=== PATIENT | female | born 1985 | race Caucasian/White ===

== ENCOUNTER 2017-10-18 05:30 | Inpatient (IN) | payer OTHER ==
--- NOTE | 2017-10-17 13:35 | PDOC.LDHP ---
Labor and Delivery H&P Chief complaint: scheduled induction HPI: 32 yo @ 39w2d by LMP c/w 9 week sono who presents for scheduled TOLAC/IOL. Pt has h/o LTCS x1 for breech presentation in 2011 and x 1 in 2013. Pt was exposed to [id number] trimester in , however, her serology studies have been negative and US of fetus are reassuring. Antepartum course benign. Current gestational age (weeks): 39 Due date: 10/23/17 Dating criteria: last menstrual period Grav: 3 Para: 2 OB History Details: 2012- PLTCS for breech presentation 2013- Both infants approx 6 lbs Current complications: none Abnormal US findings: No Past Medical History: Migraines Current medications: pre-vicente vitamins Previous surgical history: low tranverse CS Allergies/Adverse Reactions: Allergies Allergy/AdvReac Type Severity Reaction Status Date / Time No Known Allergies Allergy Unverified 10/18/17 10:04 Social history: none - Physical Exam Vital signs reviewed and normal: yes General: NAD Heart: RRR Lungs: nonlabored breathing Abdomen: gravid Extremeties: no edema FHT: category 1 (130s, mod steven, +accels, no decels) [place] contractions every: q2-4 min - Vaginal Exam cm dilated: 3 (cephalic) Effacement: 50% Station: -2 - OB Labs Blood type: A RH: positive Antibody Screen: negative HIV: negative RPR: negative HEPSAg: negative 1 hour GCT: negative GBS: negative Urine drug screen: not done Rubella: immune - Assessment 39w2d IUP H/O LTCS x1, H/O x1 TOLAC Elective IOL - Plan Plan: admit to L&D, informed consent obtained, anesthesia consult for pain management -: Start pitocin for IOL of TOLAC
[2017-10-18 10:06] VITALS: BMI 34.1
[2017-10-18] MEDS: Lactated Ringer's 1,000 ML IV SCH ×3 (10:30→16:55)
[2017-10-18] MEDS ORDERED: Butorphanol Tartrate 1 MG/ML VIAL SLOW IVP PRN (10:47)
[2017-10-18] MEDS ORDERED: Ibuprofen 800 MG TAB PO PRN (10:47)
[2017-10-18] MEDS ORDERED: Carboprost 250 MCG/ML AMP IM PRN (10:47)
[2017-10-18] MEDS ORDERED: Lidocaine 1% (PF) 30 ML VIAL SC PRN (10:47)
[2017-10-18] MEDS ORDERED: Promethazine HCl 25 MG/ML VIAL IM PRN (10:47)
[2017-10-18] MEDS ORDERED: Methylergonovine 0.2 MG/ML VIAL IM PRN (10:47)
[2017-10-18] MEDS ORDERED: Ondansetron HCl/PF 4 MG/2 ML Vial IVP PRN (10:47)
[2017-10-18] MEDS ORDERED: Acetaminophen 500 MG TAB PO PRN (10:47)
[2017-10-18] MEDS ORDERED: NS w/ Oxytocin 10 units 500 ML IV SCH (10:47)
[2017-10-18] MEDS ORDERED: Misoprostol 200 MCG TAB PR PRN (10:47)
[2017-10-18] MEDS ORDERED: Diphenoxylate HCl/Atropine Tablet PO PRN (10:47)
[2017-10-18] MEDS ORDERED: NS / Oxytocin 40 units/1000ml 1,000 ML IV PRN (10:47)
[2017-10-18] MEDS ORDERED: HYDROcodone/Acetaminophen 5/325 mg Tablet PO PRN (10:47)
[2017-10-18 10:56] LABS: Hemoglobin 11.1 g/dL (12.0-16.0); Mean Corpuscular HGB CONC 35.3 g/dL (32.0-36.0); Mean Corpuscular Hemoglobin 30.4 pg (27.0-31.0); Mean Corpuscular Volume 86.2 fL (78.0-98.0); Mean Platelet Volume 8.4 fL (7.4-10.4); Platelet Count 232 thou/uL (130-400); RBC Distribution Width 12.5 % (11.5-14.5); Red Blood Cell (RBC) Count 3.64 mill/uL (4.20-5.40); White Blood Cell (WBC) Count 8.7 thou/uL (4.8-10.8)
[2017-10-18 11:35] LABS: Syphilis Antibody Nonreactive (Nonreactive); Syphilis Antibody Index 0.04 S/CO (<1.00 Non-Reactive)
[2017-10-18 11:36] LABS: HBSAg Index 0.17 S/CO (0-0.99); HIV (1/2) Antibody/Antigen Non-Reactive (NonReactive); HIV 1/2 INDEX 0.07 S/CO (<1.00); Hep B Surf Ag Non-Reactive S/CO (NonReactive)
[2017-10-18] MEDS ORDERED: Lidocaine 2% MPF 10 ML AMP (For Epidural Use) ONE (13:32)
[2017-10-18] MEDS ORDERED: ePHEDrine/0.9% NaCl/PF SYRINGE 50 mg/10 ml ONE (13:32)
[2017-10-18] MEDS ORDERED: Bupivacaine 0.75% 13.4 ML, fentaNYL Citrate/PF 400 MCG in Sodium Chloride 0.9% 78.6 ML EPIDURAL SCH (15:15)
--- NOTE | 2017-10-18 17:56 | PDOC.LDPN ---
Labor & Delivery Progress Note - Subjective Subjective: comfortable - Objective Vital signs reviewed and normal: yes General: NAD Uterine fundus: non tender SVE: cephalic Dilation: 4 Effacement: 50% Station: -2 FHT: category 1 [place] contractions every: q2 min AROM: clear fluid IUPC placed: yes - Assessment (1) Encounter for trial of labor Code(s): O33.9 - MATERNAL CARE FOR DISPROPORTION, UNSPECIFIED Current Visit: Yes Status: Acute Plan: continue plan of care
[2017-10-18] MEDS ORDERED: Lidocaine 1% (PF) 30 ML VIAL ONE (20:34)
--- NOTE | 2017-10-18 21:24 | PDOC.OPDEL ---
OB Operative/Delivery Note Delivery Dr/Surgeon: Masha Thomas DO Pre-Delivery Diagnosis: elective induction Procedure/Post Delivery Dx: vaginal delivery after CS Weeks gestation: 39 Anesthesia: epidural - Findings A Sex: male - 1 min: 9 - 5 min: 9 - Additional Findings/Plan Placenta delivered: spontaneous Repaired Obstetrical Laceration: right labial Estimated blood loss: QBL 8 cc per rigger third Compilations/Other Findings: Infant in DORCAS position Normal appearing placenta Clear AF Post delivery plan: routine recovery
[2017-10-18] MEDS ORDERED: Bisacodyl 10 MG SUPP PR PRN (23:55)
[2017-10-18] MEDS ORDERED: diphenhydrAMINE 25 MG CAP PO PRN (23:55)
[2017-10-18] MEDS ORDERED: Benzocaine/Menthol 20-0.5% 60 ML CAN TOP PRN (23:55)
[2017-10-18] MEDS ORDERED: Milk Of Magnesia 30 ML UDCUP PO PRN (23:55)
[2017-10-18] MEDS ORDERED: NS / Oxytocin 40 units/1000ml 1,000 ML IV SCH (23:55)
[2017-10-18] MEDS ORDERED: traMADol HCl 50 MG TAB PO PRN (23:55)
[2017-10-19] MEDS: Ibuprofen 800 MG TAB PO SCH ×3 (06:00→20:59)
--- NOTE | 2017-10-19 08:17 | PDOC.PP ---
Post Progress Note Post Day #: 1 Subjective: Doing well. No complaints. Minimal lochia. Breast feeding. PO intake tolerated: yes Flatus: yes Ambulation: yes Weight Weight 205 lb - Physical Examination General: NAD Cardiovascular: RRR Respiratory: non-labored breathing Abdominal: no distention, appropriately TTP Fundus firm & at: below umbilicus Extremities: negative homans (B) Skin: CS incision dry & intact Neurological: no gross focal deficits Psychiatric: A&Ox3 Result Diagrams: 10/18/17 10:37 Additional Labs: Post Labs Blood Type A POSITIVE 10/18/17 10:37 Hep Bs Antigen Non-Reactive S/CO (NonReactive) 10/18/17 10:37 (1) Encounter for trial of labor Code(s): O33.9 - MATERNAL CARE FOR DISPROPORTION, UNSPECIFIED Status: Resolved (2) (vaginal after ) Code(s): O34.219 - MATERNAL CARE FOR UNSP TYPE SCAR FROM PREVIOUS DEL Status: Acute - Assessment/Plan PPD1 VSSAF Continue PP care Plan for d/c tomorrow due to late delivery
[2017-10-19] MEDS: Docusate Calcium (SURFAK) 240 MG CAP PO SCH ×2 (09:30→20:59)
[2017-10-19] MEDS: Prenatal Vitamin 1 TAB PO SCH (09:31)
[2017-10-20] MEDS: Ibuprofen 800 MG TAB PO SCH ×2 (05:26→13:41)
--- NOTE | 2017-10-20 07:50 | PDOC.PP ---
Post Progress Note Post Day #: 2 Subjective: No concerns. Doing well. Breast feeding. Minimal lochia and pain. PO intake tolerated: yes Flatus: yes Ambulation: yes Vital Signs (12 hours) Temp Pulse Resp BP 10/19/17 20:30 97.9 F 62 20 111/67 Weight Weight 205 lb - Physical Examination General: NAD Cardiovascular: RRR Respiratory: non-labored breathing Abdominal: no distention, appropriately TTP Fundus firm & at: below umbilicus Extremities: negative homans (B) Neurological: no gross focal deficits Psychiatric: A&Ox3 Result Diagrams: 10/18/17 10:37 Additional Labs: Post Labs Blood Type A POSITIVE 10/18/17 10:37 Hep Bs Antigen Non-Reactive S/CO (NonReactive) 10/18/17 10:37 (1) Encounter for trial of labor Code(s): O33.9 - MATERNAL CARE FOR DISPROPORTION, UNSPECIFIED Status: Resolved (2) (vaginal after ) Code(s): O34.219 - MATERNAL CARE FOR UNSP TYPE SCAR FROM PREVIOUS DEL Status: Acute - Assessment/Plan PPD2 VSSAF Stable for d/c home. D/C with infant
[2017-10-20 08:07] VITALS: BP 99/61; TEMP 97.6
[2017-10-20] MEDS: Prenatal Vitamin 1 TAB PO SCH (08:56)
[2017-10-20] MEDS: Docusate Calcium (SURFAK) 240 MG CAP PO SCH (08:56)
== END 2017-10-20 15:20 | disposition home or self-care (01) | DRG 775 ==
LOC: L&D 09:33 → 3SW 23:54
PROVIDERS: ADMIT Obstetrics & Gynecology; ATTEND Obstetrics & Gynecology
PROC: 10E0XZZ Delivery of Products of Conception, External Approach (ICD-10-PCS; principal; 2017-10-18)
PROC: 3E033VJ Introduction of Other Hormone into Peripheral Vein, Percutaneous Approach (ICD-10-PCS; 2017-10-18)
PROC: 0UQMXZZ Repair Vulva, External Approach (ICD-10-PCS; 2017-10-18)
DX: O34.211 Maternal care for low transverse scar from previous cesarean delivery (principal); Z37.0 Single live birth; Z3A.39 39 weeks gestation of pregnancy; O70.0 First degree perineal laceration during delivery
CPT/HCPCS: 51702; 85027; 86780; 86850; 86900; 86901; 87340; 87389; J2001; J2405; J3010; J7050